=== PATIENT | female | born 1950 | race Caucasian/White ===

== ENCOUNTER 2024-09-21 12:28 | Emergency (ER) | payer MEDICARE, OTHER ==
[~2024-09-21] VITALS: Ht 165.1 cm; Wt 72.3 kg
[~2024-09-21 12:28] MED LIST: CALCIUM + D SO1 EACH PO; ESTROGEN-METHY1 EAC3 PO; FLUOXETINE HCL40 MG PO; GLUCOSAMINE-CH1 EA11 PO; MEDROXYPROGESTER5 MG PO; NORCO 5-325 TA1 EACH PO; OMEPRAZOLE20 MG PO; VITAMIN D1000 UNI1 PO
[2024-09-21 12:50] LABS: BILIRUBIN, URINE NEGATIVE (negative); BLOOD/HGB, URINE NEGATIVE (Negative); KETONE, URINE NEGATIVE (Negative); LEUK ESTERASE, URINE NEGATIVE (negative); NITRITE, URINE NEGATIVE (negative)
[2024-09-21] MEDS ORDERED: HYDROmorphone HCL 1 MG/ML SYR IV ONE (13:00)
[2024-09-21] MEDS ORDERED: ondansetron HCL 4 MG/2 ML VIAL IV PRN (13:00)
[2024-09-21 13:09] LABS: BASOPHILS 0.6 % (0-2); EOSINOPHILS 1.4 % (0-6); HEMATOCRIT 39.7 % (35.0-50.0); HEMOGLOBIN 13.6 g/dL (12.0-18.0); LYMPHOCYTES 33.5 % (24-44); MCH 33.3 (27-36); MCHC 34.2 g/dl (30-36); MCV 97.5 fl (81-99); MONOCYTES 9.3 % (0-12); NEUTROPHILS 55.2 % (39-80); PLATELET COUNT 206 K/uL (140-440); RBC 4.07 M/ul (4.3-5.7); RDW 13.9 (10.5-15.0)
[2024-09-21 13:25] LABS: ALBUMIN 3.8 g/dL (3.4-5.0); ALBUMIN/GLOBULIN RATIO 1.36 (1.1-2.4); ANION GAP 10.9 (7-21); BILIRUBIN, TOTAL 0.4 ng/dL (0.2-1.0); BUN/CREATININE RATIO 12.19 (6.0-28.6); CALCIUM 9.1 mg/dL (8.5-10.1); CREATININE, SERUM 0.82 mg/dL (0.55-1.02); POTASSIUM 3.9 mmol/L (3.5-5.1); PROTEIN, TOTAL 6.6 g/dL (6.4-8.2)
[2024-09-21] MEDS ORDERED: HYDROCODON-ACE1 EA10 PO (15:32)
[2024-09-21 15:41] VITALS: BP 159/99
== END 2024-09-21 15:42 | disposition home or self-care (01) ==
LOC: ED 12:28
PROVIDERS: Emergency Medicine
DX: R10.9 Unspecified abdominal pain (principal); D17.71 Benign lipomatous neoplasm of kidney; Z88.8 Allergy status to other drugs, medicaments and biological substances; Z79.899 Other long term (current) drug therapy
CPT/HCPCS: 36415; 74177; 80053; 81003; 83690; 85025; 99284-25

== ENCOUNTER 2025-03-21 10:49 | Day surgery (SDC) | payer MEDICARE, OTHER ==
[~2025-03-21] VITALS: Ht 165.1 cm; Wt 69.5 kg
--- NOTE | ~2025-03-21 | OR ---
[facility] [address] [place], [place] [address] Draft DATE OF OPERATION: 03/21/2025 SURGEON: Kavita Tran MD PREOPERATIVE DIAGNOSIS: Complex hiatal hernia, stomach with mediastinum. POSTOPERATIVE DIAGNOSES: 1. Possible adenomatous polyp of stomach. 2. Antral gastritis. PROCEDURE: Esophagogastroduodenoscopy with biopsy. ANESTHESIA: Intravenous sedation fentanyl 100 mcg and Versed 3 mg. INDICATION: This 74-year-old white woman is a patient of KATIE Wiseman of [place]. The patient lives in [place] as well. 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 A very large hiatal hernia was noted on September 21, 2024. CT scan performed in the emergency room as ordered by Dr. Rawls. The CT scan showed a very large hiatal hernia containing majority of the stomach within the mediastinum. She has no specific complication at this time, specifically no ischemia. She does have dyspeptic symptoms, bloating and sometimes swallowing trouble, and on that basis, consideration is made for surgical repair. Anticipating probable repair upper endoscopy is well indicated to assess for neoplastic disease, stricture, H pylori, and other abnormalities might impact perioperative management or preoperative management. She understands risk of bleeding, infection, and perforation related to upper endoscopy and wished to proceed. FINDINGS: Esophagus generally speaking was okay without sign of ulceration, neoplasm, varices or Lopez's epithelium. The stomach itself was as expected somewhat contorted in its appearance. The GE junction itself had a flap valve but stomach was quite likely herniated above the diaphragm. Manipulation allow for passage to the antrum and the pylorus. The antrum did appear chronically inflamed, but without ulceration. The duodenum was reasonably normal. Biopsies were obtained there and of the stomach. Within the midportion of the stomach was an unifocal polyp which had an adenomatoid PATIENT NAME: MEME OLIVO OPERATIVE REPORT DATE OF : 52 REPORT #: [id number] PHYSICIAN: KAVITA TRAN MD PCP: MATHEW PAUL REPORT IS CONFIDENTIAL AND NOT TO BE RELEASED WITHOUT AUTHORIZATION [facility] [address] [place], [place] [address] Draft appearance of its surface and this was excised with cold morcellation technique. DESCRIPTION OF PROCEDURE: The patient was brought to the endoscopy suite and placed in lateral decubitus position, underwent lidocaine hypopharyngeal anesthesia. She was given intravenous sedation to the point of slurred speech and nystagmus with full cardiopulmonary monitoring. A bite block was placed. An Olympus video upper endoscope was passed in the hypopharynx. Vocal cords appeared normal. Scope was advanced to the esophagus without problem throughout its length it was reasonably normal without sign of pathologic issue and specifically no stricture or neoplasm. Scope was passed to the stomach which was insufflated with air. A somewhat contorted stomach was noted. Rugal folds are reasonably normal, however, with various manipulations. Scope was passed into the antrum where the pylorus was visualized as normal. Scope was passed through it into the duodenum, which was generally normal. Biopsies were obtained to assess for celiac disease. The scope was withdrawn and biopsies then taken of the antrum, which did show chronic inflammatory change. On the midportion of stomach was an adenomatous appearing polyp, which was less than a cm. This was excised with cold morcellation technique. There was no other polyps visible. Retroflexed view was undertaken showing a diaphragmatic hiatus constricting the upper part of the stomach with a flap valve that appeared intact. The scope was straightened, withdrawn and biopsies taken for NIKOLAI and pathologic testing. The distal esophagus was additionally biopsied upon withdrawal of scope in the mid esophagus as well. Scope was removed. The patient was taken to the recovery room in good condition. CONCLUDING DIAGNOSIS: Upper endoscopic findings consistent with CT findings of significant grade 4 hiatal hernia. Mild antral gastritis without evidence of H pylori was noted. There is no neoplasm of the stomach or esophagus. Proceeding to operative repair would be anticipated in the near future. MD JASS Chiu/JESSICAL /[id number] cc: KATIE Wiseman PATIENT NAME: MEME OLIVO OPERATIVE REPORT DATE OF : 52 REPORT #: [id number] PHYSICIAN: KAVITA TRAN MD PCP: MATHEW PAUL REPORT IS CONFIDENTIAL AND NOT TO BE RELEASED WITHOUT AUTHORIZATION [address] [address] Draft Copies: MATHEW PAUL ~ PATIENT NAME: MEME OLIVO MARIUM OPERATIVE REPORT DATE OF : 52 REPORT #: [id number] PHYSICIAN: KAVITA TRAN MD PCP: MATHEW PAUL REPORT IS CONFIDENTIAL AND NOT TO BE RELEASED WITHOUT AUTHORIZATION
[~2025-03-21 10:49] MED LIST changes: +HYDROCODON-ACE1 EA10 PO; +IBLOOD GLUCOSE TEST STRIP 1 EA TEST VI PRN; +LACTATED RINGER'S 1,000 ML IV SCH; +LIDOCAINE HCL 1% 5 ML SDV INJ ONE; +LIDOCAINE HCL 4% 50 ML BTL TOP SCH; +MIDAZOLAM HCL 5 MG/5 ML VIAL IV PRN; +fentaNYL citrate 100 MCG/2 ML VIAL IV PRN
[2025-03-21 11:15] VITALS: BP 142/78
[2025-03-21] MEDS ORDERED: PRIMIDONE50 MG PO (11:20)
[2025-03-21] MEDS ORDERED: fentaNYL citrate 100 MCG/2 ML VIAL ONE (12:20)
[2025-03-21] MEDS ORDERED: MIDAZOLAM HCL 5 MG/5 ML VIAL ONE (12:20)
--- NOTE | 2025-03-21 13:05 | NUR ---
03/21/25 1305 Mackenzie Poe 6551-PATIENT ARRIVED TO PACU ON 2L NC RR EVEN. PATIENT LAYING LEFT LATERAL ABDOMEN SOFT. IVF INFUSING. SB HR 57-60'S. DENIES PAIN OR NAUSEA. PATIENT ORIENTED TO PACU EASILY DOZES BACK TO SLEEP.
[2025-03-21 13:36] VITALS: BP 142/94
--- NOTE | 2025-03-23 09:17 | PATH ---
[facility] [address] [facility] [place], [place] [address] Signed SPECIMEN(S): A GASTRIC STOMACH POLYP SPECIMEN(S): B DUODENAL BIOPSY SPECIMEN(S): C ANTRUM BIOPSY SPECIMEN(S): D DISTAL ESOPHAGEAL BIOPSY SPECIMEN(S): E MID ESOPHAGEAL BIOPSY SPECIMEN SOURCE: A. GASTRIC STOMACH POLYP B. DUODENAL BIOPSY C. ANTRUM BIOPSY D. DISTAL ESOPHAGEAL BIOPSY E. MID ESOPHAGEAL BIOPSY CLINICAL HISTORY: Grade 4 hiatal hernia, gastric polyps (was written in special request to rule out) FINAL PATHOLOGIC DIAGNOSIS: A. Stomach, polypectomy: - Fundic gland polyp B. Duodenum, biopsy: - Duodenal mucosa with no significant pathologic changes C. Stomach, antrum, biopsy: - Gastric antral and oxyntic mucosa with no significant pathologic changes - Negative for Helicobacter pylori with HE stains D. Esophagus, distal, biopsy: - Squamoglandular mucosa with no significant pathologic changes; negative for intestinal metaplasia E. Esophagus, mid, biopsy: - Esophageal squamous mucosa with no significant pathologic changes BRP MICROSCOPIC EXAMINATION: Histologic sections of all submitted blocks are examined by light microscopy. These findings, together with the gross examination, support the pathologic diagnosis. GROSS DESCRIPTION: A. The specimen, labeled and designated "Олег Julienne, gastric stomach polyp," is received in formalin and consists of two queen soft tissue fragments, ranging from 0.2-0.3 cm. Entirely submitted in (A1). PATIENT NAME: MEME OLIVO MARIUM PATHOLOGY DATE OF : 52 REPORT #: [id number] PHYSICIAN: ARIANE PATHOLOGY PCP: MATHEW PAUL REPORT IS CONFIDENTIAL AND NOT TO BE RELEASED WITHOUT AUTHORIZATION [facility] [address] [place], [place] [address] Signed B. The specimen, labeled and designated "Evertson, N, duodenal biopsy," is received in formalin and consists of two queen soft tissue fragments, ranging from 0.2-0.3 cm. Entirely submitted in (B1). C. The specimen, labeled and designated "Arnson, N, antrum biopsy," is received in formalin and consists of two queen soft tissue fragments, ranging from 0.4-0.8 cm. Entirely submitted in (C1). D. The specimen, labeled and designated "Arnson, N, distal esophageal biopsy," is received in formalin and consists of two queen soft tissue fragments, ranging from 0.3-0.4 cm. Entirely submitted in (D1). E. The specimen, labeled and designated "Evertson, N, mid esophageal biopsy," is received in formalin and consists of two queen soft tissue fragments, ranging from 0.2-0.4 cm. Entirely submitted in (E1). AB (under the direct supervision of a pathologist) The Gross Description was prepared using a voice recognition system. The report was reviewed for accuracy; however, sound-alike word errors, addition and/or deletions may occur. If there is any question about this report, please contact Client Services. ADDITIONAL NOTES: Immunohistochemical and/or in situ hybridization studies if performed in this case included appropriate positive controls that reacted as expected. This test was developed and its performance characteristics determined by [facility]. It has not been cleared or approved by the U.S. Food and Drug Administration. The FDA has determined that such clearance or approval is not necessary. This test is used for clinical purposes. It should not be regarded as investigational or for research. [facility] is certified under the Clinical Laboratory Improvement Amendments of 1988 (CLIA) as qualified to perform high complexity clinical laboratory testing. PERFORMING LABORATORY: Technical component was performed by [facility], [facility] [place] [address] (CLIA# [id number]). Professional interpretation was performed by [facility] - Loc[facility] Within [facility], [facility] [place] [address] (CLIA#: [id number]). Diagnostician: Andrea Paige MD Pathologist Electronically Signed 03/23/2025 PATIENT NAME: MEME OLIVO MARIUM PATHOLOGY DATE OF : 52 REPORT #: [id number] PHYSICIAN: ARIANE FRIAS PCP: MATHEW PAUL REPORT IS CONFIDENTIAL AND NOT TO BE RELEASED WITHOUT AUTHORIZATION [address] [place] [address] Signed Copies: ~ PATIENT NAME: MEME OLIVO PATHOLOGY DATE OF : 52 REPORT #: [id number] PHYSICIAN: ARIANE FRIAS PCP: MATHEW PAUL REPORT IS CONFIDENTIAL AND NOT TO BE RELEASED WITHOUT AUTHORIZATION
== END 2025-03-21 13:45 | disposition home or self-care (01) ==
LOC: OPS 10:49 → DS 10:49 → OPS 12:15
PROVIDERS: ATTEND Surgery
PROC: 0DB68ZX Excision of Stomach, Via Natural or Artificial Opening Endoscopic, Diagnostic (ICD-10-PCS; 2025-03-21)
PROC: 0DB28ZX Excision of Middle Esophagus, Via Natural or Artificial Opening Endoscopic, Diagnostic (ICD-10-PCS; 2025-03-21)
PROC: 0DB38ZX Excision of Lower Esophagus, Via Natural or Artificial Opening Endoscopic, Diagnostic (ICD-10-PCS; 2025-03-21)
PROC: 0DB98ZX Excision of Duodenum, Via Natural or Artificial Opening Endoscopic, Diagnostic (ICD-10-PCS; principal; 2025-03-21 12:15)
DX: K44.9 Diaphragmatic hernia without obstruction or gangrene (principal); K29.50 Unspecified chronic gastritis without bleeding; K31.7 Polyp of stomach and duodenum; Z79.899 Other long term (current) drug therapy; Z88.8 Allergy status to other drugs, medicaments and biological substances
CPT/HCPCS: 99153; G0500; J2250; J3010; J7121

== ENCOUNTER 2025-03-28 12:13 | Inpatient (IN) | payer MEDICARE, OTHER ==
[~2025-03-28] VITALS: Ht 165.1 cm; Wt 68.1 kg
[~2025-03-28 12:13] MED LIST changes: -GLUCOSAMINE-CH1 EA11 PO; +GLUCOSAMINE-CH1 EA21 PO; -IBLOOD GLUCOSE TEST STRIP 1 EA TEST VI PRN; -LACTATED RINGER'S 1,000 ML IV SCH; -LIDOCAINE HCL 1% 5 ML SDV INJ ONE; -LIDOCAINE HCL 4% 50 ML BTL TOP SCH; -MIDAZOLAM HCL 5 MG/5 ML VIAL IV PRN; +PRIMIDONE50 MG PO; -fentaNYL citrate 100 MCG/2 ML VIAL IV PRN
[2025-03-30] MEDS ORDERED: MULTI-VITAMIN1 EACH PO (13:28)
[2025-03-30] MEDS ORDERED: CALCIUM ACETAT667 M2 PO (13:28)
[2025-03-30 13:43] VITALS: BP 131/63
[2025-04-04] VITALS (9 sets, daily range): BP systolic 105–141; BP diastolic 60–76
[2025-04-04] MEDS ORDERED: LACTATED RINGER'S 1,000 ML IV SCH ×2 (05:00→11:45)
[2025-04-04] MEDS ORDERED: LIDOCAINE HCL 1% 5 ML SDV INJ ONE (07:00)
[2025-04-04] MEDS ORDERED: HEParin SOD (PORCINE) 5,000 UNIT/ML SDV SUB-Q SCH (07:00)
[2025-04-04] MEDS ORDERED: IBLOOD GLUCOSE TEST STRIP 1 EA TEST VI PRN (07:00)
[2025-04-04] MEDS ORDERED: CEFAZOLIN SODIUM 2 GM/20 ML SYR IV SCH (07:00)
[2025-04-04] MEDS ORDERED: ACETAMINOPHEN 1,000 MG/100 ML VIAL ONE (08:07)
[2025-04-04] MEDS ORDERED: ROCURONIUM BROMIDE 50 MG/5 ML SYR ONE (08:07)
[2025-04-04] MEDS ORDERED: fentaNYL citrate 100 MCG/2 ML VIAL ONE (08:07)
[2025-04-04] MEDS ORDERED: MIDAZOLAM HCL 2 MG/2 ML VIAL ONE (08:07)
[2025-04-04] MEDS ORDERED: LIDOCAINE HCL 2% 5 ML SDV ONE (08:07)
[2025-04-04] MEDS ORDERED: ondansetron HCL 4 MG/2 ML VIAL ONE (08:07)
[2025-04-04] MEDS ORDERED: propofoL 200 MG/20 ML VIAL ONE (08:07)
[2025-04-04] MEDS ORDERED: DEXAMETHASONE SOD PHOS 4 MG/ML VIAL ONE (08:07)
[2025-04-04] MEDS ORDERED: ePHEDrine sulfate 50 MG/ML AMP ONE (09:42)
[2025-04-04] MEDS ORDERED: SUGAMMADEX SODIUM 200 MG/2 ML ML ONE (10:59)
[2025-04-04] MEDS ORDERED: SEVOFLURANE 250 ML BTL INH ONE (11:12)
--- NOTE | 2025-04-04 11:36 | NUR ---
04/04/25 1136 Day Cisse PATIENT LIFTS HER HEAD AND OXYGEN MASK IS REMOVED. NG TUBE TO LOW SUCTION.
[2025-04-04] MEDS ORDERED: ACETAMINOPHEN 1,000 MG/100 ML VIAL IV PRN (11:45)
[2025-04-04] MEDS ORDERED: KETOROLAC TROMETHAMINE 30 MG/ML VIAL IV PRN (11:45)
[2025-04-04] MEDS ORDERED: HYDROmorphone HCL 1 MG/ML SYR IV PRN ×2 (11:45→12:15)
[2025-04-04] MEDS ORDERED: ondansetron HCL 4 MG/2 ML VIAL IV PRN (11:45)
[2025-04-04] MEDS ORDERED: NALOXONE HCL 0.4 MG SYR IV PRN (12:15)
[2025-04-04] MEDS ORDERED: droPERidol 5 MG/2 ML VIAL IV PRN (12:15)
[2025-04-04] MEDS ORDERED: fentaNYL citrate 50 MCG/ML SDV IV PRN (12:15)
[2025-04-04] MEDS ORDERED: KETOROLAC TROMETHAMINE 15 MG/ML VIAL IV ONE (12:30)
--- NOTE | 2025-04-04 12:54 | NUR ---
PT TO FLOOR WITH RAYSHAWN QUINTERO. NIKI IN ROOM. REPORT FROM INGRID. PT AWAKE BUT TIRED. RATES PAIN 4\10 IN THROAT AND IN TOP OF INCISION, CDI. NG TO LIWS, MINIMAL OUTPUT. CPOX IN PLACE. VS STABLE. ICE CHIPS IN HAND.
--- NOTE | 2025-04-04 13:49 | NUR ---
NURSING STAFF PROVIDING CARES.
--- NOTE | 2025-04-04 13:51 | NUR ---
PT RESTING IN BED WITH NG TO LIWS DRAINING SCANT BROWN SECRETIONS, HAS MIDLINE ABD INCISION WITH ACTICOAT WITH TINY SHADOW ON LOW RIGHT SIDE OF DRESSING. PT ON RA WITH CPOX ON. PT C/O PAIN TO UPPER MID ABD 4/10. CALL LIGHT WITHIN REACH AND IN ROOM.
--- NOTE | 2025-04-04 16:02 | NUR ---
PT STATES PAIN HAS DECREASED TO 3/10 AND IS TOLERABLE AT THIS TIME. NO OTHER REQUESTS. CALL LIGHT WITHIN REACH.
--- NOTE | 2025-04-04 17:06 | NUR ---
MED REC COMPLETE
--- NOTE | 2025-04-04 18:46 | NUR ---
PT UP AMBULATING IN [place] WITH FWW AND 1PA. PT TOLERATED WELL. PT BACK TO BED. DICKSON CATHETER DC'D. NO REQUESTS AT THIS TIME. CALL LIGHT WITHIN REACH. BRIEF PLACED ON PT.
--- NOTE | 2025-04-04 19:25 | NUR ---
REPORT RECEIVED FROM DAY SHIFT RN. PT LYING IN BED ALERT AND ORIENTED. DENIES NEEDS. WHITE BOARD UPDATED. CALL LIGHT IN REACH.
--- NOTE | 2025-04-04 21:25 | NUR ---
EVENING ASSESSMENT COMPLETE. PT REPORTS ABD PAIN /10. PRN FOR PAIN ADMIN PER EMAR. DENIES NAUSEA. NGT TO LIWS PATENT WITH CLEAR DRAINAGE. PT MELANIE ICE CHIPS WELL. MIDLINE ABD INCISION WITH PIN POINT SHADOWING AT BOTTOM OF DRESSING. ABD SOFT. BOWEL TONES HYPOACTIVE. PT DENIES FLATUS. SCD'S IN PLACE. ASSISTED PT TO REPOSITION FOR COMFORT. PT DENIES QUESTIONS OR CONCERNS. CALL LIGHT IN REACH.
--- NOTE | 2025-04-04 23:08 | NUR ---
PT RESTING IN BED WITH EYES CLOSED. RESPIRATIONS EVEN. CALL LIGHT IN REACH.
--- NOTE | 2025-04-04 23:54 | NUR ---
PT RESTING ON RIGHT SIDE WITH EYES CLOSED. RESPIRATIONS EVEN. SpO2 94% ON RA. HR 60'S. BED ALARM FOR SAFETY. CALL LIGHT IN REACH.
[2025-04-05] VITALS (12 sets, daily range): BP systolic 102–143; BP diastolic 55–77
--- NOTE | 2025-04-05 00:22 | NUR ---
PT UP TO BR WITH FWW AND AND 1PA TO VOID 200 ML CONCENTRATED URINE. GAIT STEADY. BACK TO BED, MELANIE WELL. PT REPORTS UPPER ABD PAIN 3/10. PRN FOR PAIN ADMIN. NO C/O NAUSEA. NGT TO LIWS WITH GREEN DRAINAGE. VS AND I&O OBTAINED. FRESH ICE CHIPS PROVIDED. NO FURTHER NEEDS. BED ALARM FOR SAFETY. CALL LIGHT IN REACH.
--- NOTE | 2025-04-05 01:49 | NUR ---
IV PUMP ALARMING. ISSUE RESOLVED. PT AWAKE IN BED, REPORTS UNABLE TO SLEEP. NO C/O PAIN. TV REMOTE PROVIDED. NO NEEDS REPORTED AT THIS TIME. CALL LIGHT IN REACH. BED ALARM FOR SAFETY.
--- NOTE | 2025-04-05 03:56 | NUR ---
PT IN BED RESTING WITH EYES CLOSED. SpO2 97% ON RA. HR 70'S. HOB ELEVATED. CALL LIGHT IN REACH.
--- NOTE | 2025-04-05 04:46 | NUR ---
PT UP TO BR WITH FWW AND SBA TO VOID. GAIT STEADY. BACK TO BED, MELANIE WELL. HOB ELEVATED. NGT TO LIWS WITH 200 ML GREEN DRAINAGE. ICE CHIPS PROVIDED. PT REPORTS ABD PAIN 02/09. PRN FOR PAIN ADMIN PER EMAR. DENIES NAUSEA. VS AND I&O OBTAINED. NO FURTHER NEEDS. CALL LIGHT IN REACH.
--- NOTE | 2025-04-05 06:09 | NUR ---
CALL LIGHT ANSWERED. pt RATES PAIN 8/10 IN ABDOMEN. PRN MEDICATION ADMINISTERED. CALL LIGHT AND PERSONAL SUPPLIES IN REACH. pt DENIES ADDITIONAL NEEDS. HOB ELEVATED. NGT TO LOW INT SUCTION.
--- NOTE | 2025-04-05 06:39 | NUR ---
PT RATED MID ABD PAIN 9/10. PRN FOR PAIN ADMIN PER EMAR. ICE PACK PROVIDED FOR COMFORT. NO FURTHER NEEDS AT THIS TIME.
--- NOTE | 2025-04-05 06:50 | NUR ---
PT REPORTS PAIN IMPROVED /10. SpO2 87-89% ON RA. 1L/NC PLACED. SpO2 >90%.
--- NOTE | 2025-04-05 07:14 | NUR ---
UR CLINICAL REVIEW: 2 MN FOR VERSALUS-MEETS INPT FOR HILL REPAIR WITH NEED FOR PAIN CONTROL MEDICARE INPT 04/04/25 @ 1146 ORDER MATCHES REG NO AUTH REQUIRED PER MEDICARE GUIDELINES DISCHARGE TO HOME WHEN STABLE
--- NOTE | 2025-04-05 07:21 | NUR ---
REPORT RECEIVED FROM RAYSHAWN ADAMS
--- NOTE | 2025-04-05 09:08 | NUR ---
ALERT AND ORIENTED IN BED. NG REMAINS IN PLACE. CONTINUES TO DENY CM NEEDS. PLAN TO DC TO HOME WHEN MEDICALLY CLEARED.
[2025-04-05] MEDS ORDERED: HYDROmorphone HCL 2 MG TAB PO PRN (09:45)
--- NOTE | 2025-04-05 09:59 | OR ---
[facility] [address] [place], [place] [address] Signed DATE OF OPERATION: 04/04/2025 SURGEON: Kavita Tran MD PREOPERATIVE DIAGNOSES: Complex type 4 hiatal hernia with dysphagia and bloating (stomach and chest). POSTOPERATIVE DIAGNOSES: Complex type 4 hiatal hernia with dysphagia and bloating (stomach and chest). PROCEDURE: Hill repair-reconstruction of the gastroesophageal junction with posterior gastropexy. ANESTHESIA: General endotracheal, Roger Warner CRNA. DRAWING PRESS OPERATOR: Irvin Mcgarry RN. INDICATION: This 74-year-old white woman is from [place], [place] and a patient of Char MCKEON. The patient has had bloating and fullness for quite some time and on recent evaluation in the emergency room in January had complaints of abdominal pain, bloating, fullness, and low-grade dysphagia. A CT scan was performed on September 21, 2024, showing a very large hiatal hernia containing the majority of the stomach within the mediastinum. There was no sign of obstruction or ischemia. The patient is known to have a prior history of myelolipoma of the kidneys. She has undergone embolization therapy for that. She has had cholecystectomy in the past as well. She did undergo upper endoscopy by me showing no evidence of lesion to contraindicate repair of the sizable symptomatic type 4 hiatal hernia. On that basis, she is admitted at this time to undergo repair of the complex hernia with Hill posterior gastropexy (reconstruction of the GE junction) after reduction of herniated stomach. The risk of bleeding, infection, recurrence, need for other indicated procedures and so forth was all reviewed in detail. She understands and wished to proceed. FINDINGS: As expected much of the stomach was in the posterior mediastinum. It was easily reduced without evidence of ischemia or ulceration externally. The redundant phrenoesophageal ligaments forming hernia sacs in the typical were resected. Electronically Signed By: KAVITA TRAN MD 04/05/25 0959 PATIENT NAME: MEME OLIVO OPERATIVE REPORT DATE OF : 52 REPORT #: [id number] PHYSICIAN: KAVITA TRAN MD PCP: SHASHI BARRERA MD REPORT IS CONFIDENTIAL AND NOT TO BE RELEASED WITHOUT AUTHORIZATION [facility] [address] [place], [place] [address] Signed The esophagus, once fully freed from the hernia sac elements, easily demonstrated an anterior and posterior vagal nerve, which were well preserved. The spleen was normal. Reconstruction of the GE junction was optimal with a palpable flap valve that appeared appropriate. The liver itself was normal. There was surgical absence of the gallbladder. The duodenum was normal. Manometrics was not available and therefore not performed. DESCRIPTION OF PROCEDURE: The patient was brought to the operating room and given a general endotracheal anesthetic. She had already undergone preoperative T9, erector spinae nerve blocks anticipating postoperative analgesic benefit. After satisfactory general endotracheal anesthesia, a Thomas catheter was placed. The abdomen was prepared with a chlorhexidine solution and draped sterilely. Prep was extended to above the nipples. Preoperative antibiotic Ancef had been given. Sequential compression device stockings were used as well. An incision was made from the xiphoid to the mid epigastric area and later increased in length, but still above the umbilicus related to the abdominal wall fatty tissue. Upon entry to the abdomen, inspection showed no sign of ascites or carcinomatosis. The liver appeared normal as did the transverse colon. Much of the stomach was herniated into the chest. This was easily grasped and withdrawn demonstrating well the GE junction with very attenuated attachments forming hernia sacs as expected. A lapatomy sponge was placed behind the spleen to take tension off the medial aspect of the spleen. The left lateral segment of liver was freed with electrocautery and subsequently the gastrohepatic omentum was similarly incised exposing the caudate lobe of the liver and the vena cava itself. An upper hand retractor was placed prior to mobilization of the left lateral segment in the usual way providing excellent exposure of the upper abdomen. A Bookwalter retractor was affixed to the lower part of the table and the left lateral segment rotated and reflected to the right exposing well the GE junction and secured with a malleable blade. Impressively attenuated fibers of the phrenoesophageal bundles forming hernia sacs were noted. The stomach was directed inferiorly and a dario clamp applied to the right kylah. The hernia sacs were incised mobilizing fully the GE junction. Alternating dissection on left and right side of the GE junction including the left kylah was also undertaken. Ultimately, the hook retractor was used to reflect the GE junction to the left exposing the posterior mediastinum. The aorta was well visualized and the esophageal hiatus was impressively wide, but the left and right crura were peres and well formed. Anterior and posterior vagal nerves were identified in conjunction with Electronically Signed By: KAVITA TRAN MD 04/05/25 0959 PATIENT NAME: MEME OLIVO OPERATIVE REPORT DATE OF : 52 REPORT #: [id number] PHYSICIAN: KAVITA TRAN MD PCP: SHASHI BARRERA MD REPORT IS CONFIDENTIAL AND NOT TO BE RELEASED WITHOUT AUTHORIZATION [place] [address] Signed the esophagus and were preserved and without injury. The divided hernia sacs and their bungee cord like effects on the ge junction were fully divided to allow for a tension free well mobilized GE junction. On this occasion instead of elevating the pre aortic fascia with a emir cervical dilator Rociada clamps were attached to the left and right crura. The crura were then reapproximated with interrupted O silk suture with Betadine-soaked felt pledgetts. Three sutures were placed. The esophagus was able to be palpated with the tip of the finger along side the closure avoiding excessive closure of the hiatal aperture. Plans were then made for reconstruction of the GE junction proper. The anterior and posterior phrenoesophageal bundles were easily identified and grasped with Rociada clamps. In the typical technique of Cornelius, 4 repair sutures were initially placed. These included a seromuscular bite of the stomach and the associated phreno esophageal bundle and the pre aortic fascia at the base of the right kylah. The pre aortic fascia was elevated away from the underlying aorta using the previously placed silk suture for crural reapproximation. Four sutures were ultimately secured allowing for peres reconstruction of the gastroesophageal flap valve. The fundus of the stomach was then secured to the tendon of the diaphragm with 3 separate interrupted 0 silk sutures with Betadine soaked Bonilla pledgets to avoid early herniation of the fundus of the stomach. Irrigation was undertaken. Hemostasis was found to be complete. Palpation of the resultant flap valve appeared optimal. The laparotomy pack behind the spleen was removed. Irrigation undertaken and plans then made for closure. The midline fascia was reapproximated with running bidirectional #1 PDS suture. Subcutaneous tissue was irrigated and the skin closed with running subcuticular 3-0 Vicryl. Steri-Strips were applied as was an Acticoat dressing. The patient was ultimately extubated and transferred to the recovery room in good condition having suffered no complication. Sponge, needle, and instrument counts reported as correct x3. MD JASS Chiu/MODL /[id number] cc: Char Grayson Electronically Signed By: KAVITA TRAN MD 04/05/25 0959 PATIENT NAME: MEME OLIVO MARIMU OPERATIVE REPORT DATE OF : 52 REPORT #: [id number] PHYSICIAN: KAVITA TRAN MD PCP: SHASHI BARRERA MD REPORT IS CONFIDENTIAL AND NOT TO BE RELEASED WITHOUT AUTHORIZATION [facility] [address] [facility] [place], [place] [address] Signed Copies: CHAR GRAYSON Electronically Signed By: KAVITA TARN MD 04/05/25 0959 PATIENT NAME: MEME OLIVO OPERATIVE REPORT DATE OF : 52 REPORT #: [id number] PHYSICIAN: KAVITA TRAN MD PCP: SHASHI BARRERA MD REPORT IS CONFIDENTIAL AND NOT TO BE RELEASED WITHOUT AUTHORIZATION
[2025-04-05] MEDS ORDERED: HYDROmorphone HCL 1 MG/ML SYR IV PRN (10:00)
[2025-04-05] MEDS ORDERED: ondansetron HCL 4 MG/2 ML VIAL IV PRN (10:00)
[2025-04-05] MEDS ORDERED: KETOROLAC TROMETHAMINE 30 MG/ML VIAL IV PRN (10:00)
--- NOTE | 2025-04-05 11:04 | NUR ---
VISITED DURING SPIRITUAL CARE ROUNDS. PT SUPPORTED BY IN ROOM, NO IMMEDIATE NEEDS. TRANSFER STATION ATTENDANT PROVIDED SUPPORTIVE PRESENCE, HOSPITALITY, PRAYER, GAVE ANTICIPATORY GUIDANCE, EXPLORED LISA PRACTICES.
--- NOTE | 2025-04-05 11:46 | NUR ---
PT UP AMBULATING IN [place] WITH FWW AND 1 PA, PT TOLERATED WELL. PT BACK TO BED WITH SCDS ON , USING INCENTIVE SPIROMETER, AND CALL LIGHT WITHIN REACH. AT BEDSIDE. PT RATES PAIN 2/10 STATES IS TOLERABLE. ACITCOAT DRSG TO MID ABD WITH TINY SHADOW R LOWER CORNER, OTHERWISE CDI. TOLERATED WATER AND JELLO.
--- NOTE | 2025-04-05 13:41 | NUR ---
PT SITTING AT SIDE OF BED EATING CL LIQUID LUNCH, TOLERATING WELL. PT C/O PAIN TO MID ABD INCISION 03/11, MEDS GIVEN ORDERED. CALL LIGHT WITHIN REACH. QUITE PACK ALSO GIVEN. NO OTHER REQUESTS AT THIS TIME.
[2025-04-05] MEDS ORDERED: ACETAMINOPHEN 160 MG/5 ML ML PO SCH (14:00)
--- NOTE | 2025-04-05 15:16 | NUR ---
PT C/O PAIN 5/10 TO MID ABD SURGICAL SITE. MEDICATION GIVEN ORDERED. CALL LIGHT WITHIN REACH.
--- NOTE | 2025-04-05 16:45 | NUR ---
PT AMBULATED IN [place] FULL [place] AROUND UNIT WITH 1 SBA AND FWW, PT TOLERATED WELL. PT THEN AMBULATED INTO THE RESTROOM TO VOID 500 CC CL YELLOW URINE. PT THEN AMBULATED TO CHAIR. PT IN CHAIR WITH LEGS ELEVATED AND CALL LIGHT WITHIN REACH. NO REQUESTS AT THIS TIME.
--- NOTE | 2025-04-05 18:22 | NUR ---
PT SITTING UP IN CHAIR EATING CL LIQ DINNER ORDERED, PT TOLERATED WELL. PT C/0 PAIN TO ABD INCISION 02/09, MED GIVEN ORDERED, AND WATER REFRESHED. NO OTHER REQUESTS AT THIS TIME. CALL LIGHT WITHIN REACH.
--- NOTE | 2025-04-05 19:05 | NUR ---
REPORT RECEIVED FROM KAMINI TABARES. BOARD UPDATED. ICE PACK PROVIDED. pt DENIES ANY OTHER NEEDS AT THIS TIME. CALL LIGHT WITHIN REACH.
--- NOTE | 2025-04-05 20:39 | NUR ---
BIOLOGY FACULTY MEMBER OBTAINED VITALS AND I&O. PT STATES NO NEEDS AT THIS TIME. CALL LIGHT WITHIN REACH.
--- NOTE | 2025-04-05 21:00 | NUR ---
ASSESSMENT DONE. pt UP TO THE BR. SBA WITH FWW. pt C/O 04/11 PAIN. PRN PAIN MEDS ADMINISTERED. MIDLINE DRESSING MAS MINIMAL DRAINAGE ON IT, OTHERWISE CDI. pt DENIES ANY OTHER NEEDS AT THIS TIME. CALL LIGHT WITHIN REACH.
--- NOTE | 2025-04-05 22:05 | NUR ---
pt RESTING IN THE BED. pt C/O 02/09. PRN AND SCHEDULED MEDS ADMINISTERED. pt DENIES ANY OTHER NEEDS AT THIS TIME. CALL LIGHT WITHIN REACH.
[2025-04-06] VITALS (11 sets, daily range): BP systolic 95–133; BP diastolic 58–82
--- NOTE | 2025-04-06 00:21 | NUR ---
pt RESTING IN THE BED WITH EYES CLOSED. RR EVEN AND UNLABORED. CALL LIGHT WITHIN REACH.
--- NOTE | 2025-04-06 01:53 | NUR ---
pt CALLED TO USE THE BR. SBA WITH FWW. pt BACK TO BED. pt C/O 02/09 PAIN. PRN PAIN MEDS ADMINISTERED. WATER REFRESHED. ASSESSMENT DONE. pt DENIES ANY OTHER NEEDS AT THIS TIME. CALL LIGHT WITHIN REACH.
--- NOTE | 2025-04-06 02:50 | NUR ---
PT REPORTS 5/10 ABD PAIN, PRN PAIN MED PROVIDED. ICE PACK PROVIDED. PT STATES NO OTHER NEEDS AT THIS TIME. CALL LIGHT IN REACH.
--- NOTE | 2025-04-06 05:25 | NUR ---
IN RM TO DO VITAL SIGNS AND ASSESSMENT. SCHEDULED MEDS ADMINISTERED. pt DENIES ANY OTHER NEEDS AT THIS TIME. CALL LIGHT WITHIN REACH.
--- NOTE | 2025-04-06 07:05 | NUR ---
RECIEVED REPORT FROM RAYSHAWN HOLCOMB.
--- NOTE | 2025-04-06 07:57 | NUR ---
PT SITTING UP IN BED AWAKE. PT STATES PAIN IS "OKAY", EDUCATION ON AMBULATION AND PAIN CONTROL, PT VERBALIZES UNDERSTANDING. PLAN MADE FOR AMBULATION. PT REQUESTS ICE WATER, GIVEN. LUNG SOUNDS CLEAR IN UPPER LOBES, FINE CRACKLES IN BASES, EDUCATION ON DEEP BREATHING WELL I.S. USE, PT VERBALIZES UNDERSTANDING AND STATES SHE WILL USE MORE FREQUENTLY. PT STATES NO FURTHER NEEDS AT THIS TIME, CALL LIGHT WITHIN REACH.
[2025-04-06] MEDS ORDERED: IBUPROFEN 600 MG TAB PO PRN (08:00)
--- NOTE | 2025-04-06 08:45 | NUR ---
INTO SEE PATIENT. AT BEDSIDE. PATIENT TO GO HOME WITH WHEN MEDICALLY CLEARED. IM LETTER SIGNED AT 0850 NO FUTHER QUESITIONS OR NEEDS.
--- NOTE | 2025-04-06 10:03 | NUR ---
IV FLUIDS DC'D PER ORDER D/T PT TOLERATING FULL LIQUID DIET AND INTAKE WELL. PT STATES NO NEEDS AT THIS TIME, CALL LIGHT WITHIN REACH.
--- NOTE | 2025-04-06 10:11 | NUR ---
PATIENT WAS IN BED EATTING BREAKFAST AT THIS TIME WIH HER . SHE WANTED SOME HOT HERBAL MINT TEA, AND FRESH ICE WATER. CALL LIGHT WITH IN REACH AND NOTHING ELSE NEEDED AT THIS TIME.
--- NOTE | 2025-04-06 11:06 | NUR ---
PATIENT IS IN BED AT THIS TIME, REMOTE BROADCAST ENGINEER CHARTED VITALS AND I&O'S, ASSISTED PATIENT TO THE RESTROOM, WASHED HER FACE, BRUSHED HER TEETH, REMOTE BROADCAST ENGINEER CHANGED BEDDING, AND GOT FRESH ICE WATER. CALL LIGHT WITH IN REACH AND NOTHING ELSE NEEDED AT THIS TIME.
--- NOTE | 2025-04-06 12:04 | NUR ---
PT AMBULATES HALLWAYS, STATES PAIN DECREASES WITH AMBULATION. PT STATES NO NAUSEA OR SOB AT THIS TIME. PT BACK TO ROOM AND UP TO CHAIR. PT STATES NO FURTHER NEEDS AT THIS TIME, CALL LIGHT WITHIN REACH.
--- NOTE | 2025-04-06 12:53 | NUR ---
PATIENT IS IN HER CHAIR AT THIS TIME, TIME LOCK EXPERT CHARTED VITALS AND I&O'S, AND ASSISTED PATIENT WITH A WALK, EMPTIED CNAISTERS, CALL LIGHT WTIH IN REACH AND NOTHING ELSE NEEDED AT THIS TIME.
--- NOTE | 2025-04-06 13:01 | NUR ---
PT AMBULATING HALLWAY WITH OPTOMETRIC TECHNOLOGIST, STATES SHE IS WANTING TO WALK TO ASSIST WITH PAIN LEVEL. PT DENIES ANY CURRENT NEEDS.
--- NOTE | 2025-04-06 13:13 | NUR ---
PT BACK FROM WALK WITH FLOW SPECIALIST, VISITING WITH SISTER IN LAW AT THE BEDSIDE. PT STATES PAIN AFTER WALK IS 7/10, SCHEDULED PAIN MEDICATION GIVEN. WATER REFILLED, PT STATES NO FURTHER NEEDS AT THIS TIME, CALL LIGHT WITHIN REACH.
[2025-04-06] MEDS ORDERED: ACETAMINOPHEN 500 MG TAB PO SCH (14:00)
--- NOTE | 2025-04-06 17:37 | NUR ---
PT STATES SHE IS HAVING SHARP PAIN 6/10 IN UPPER ABDOMEN, PT EDUCATION ON AMBULATION ASSISTING WITH PAIN D/T PT NOT YET HAVING FLATULENCE. PT VERBALIZES UNDERSTANDING, PT UP FOR WALK AROUND UNIT. PT STATES NO INCREASE IN PAIN WITH WALKING. PT STATES NO FURTHER NEEDS AT THIS TIME, PT UP TO CHAIR FOR DINNER. CALL LIGHT WITHIN REACH.
--- NOTE | 2025-04-06 18:08 | NUR ---
PATIENT IS IN HER CHAIR AT THIS TIME, ADVANCE SCOUT CHARTED VITALS AND I&O'S, PATIENT WANTED TO GO FOR ANOTHER WALK, ASSISTED TO THE RESTROOM AND THEN BACK TO BED. GOT FRESH ICE WATER CALL LIGHT WITH IN REACH AND NOTHING ELSE NEEDED AT THIS TIME.
--- NOTE | 2025-04-06 19:22 | NUR ---
RECEIVED REPORT FROM RAYSHAWN CHASE. PT ALERT, RESTING IN BED. REPORTS ABD PAIN IS BEGINNING TO INCREASE, SHE WILL WALK IN HALLWAY. NO OTHER NEEDS, CALL LIGHT IN REACH
--- NOTE | 2025-04-06 19:46 | NUR ---
ASSESSMENT, VITALS. PT WITH 6/10 ABD PAIN, GIVEN PRN MOTRIN AND REFILLED ICE PACK. NO OTHER NEEDS, CALL LIGHT IN REACH
--- NOTE | 2025-04-06 20:31 | NUR ---
PT REPORTS PAIN INCREASING TO 7-8/10, NOT IMPROVED BY MOTRIN OR ICE. GIVEN PRN DILAUDID 4MG AND ENCOURAGED TO AMBULATE. NO OTHER NEEDS, [facility]
--- NOTE | 2025-04-06 21:41 | NUR ---
PAIN IMPROVED TO 4/10. GIVEN RUDI TYLENOL. ASSISTED TO BATHROOM, THEN AMBULATED 1 LAP IN HALLWAY WITH FWW. PT BACK IN BED, REFRESHED ICE WATER. NO OTHER NEEDS, CALL LIGHT IN REACH
--- NOTE | 2025-04-06 23:11 | NUR ---
PT RESTING IN BED, OPENS EYES AND WAVES AT THIS RN. NO NEEDS, CALL LGT IN REACH
--- NOTE | 2025-04-07 01:05 | NUR ---
PT REPORTS 6/10 PAIN. GIVEN 2MG OF PO DILAUDID AND REFRESHED ICE PACK. NO OTHER NEEDS, CALL LIGHT IN REACH
--- NOTE | 2025-04-07 02:40 | NUR ---
PT RESTING IN BED WITH EYES CLOSED, RISE AND FALL OF CHEST OBSERVED. CALL LIGHT IN REACH
--- NOTE | 2025-04-07 03:15 | NUR ---
PT RESTING IN BED WITH EYES CLOSED, RISE AND FALL OF CHEST OBSERVED. CALL LIGHT IN REACH
--- NOTE | 2025-04-07 04:00 | NUR ---
CALL LIGHT ANSWERED. PT NEEDED TO USE BATHROOM. UTILITY HAND 1PA WITH FWW TO BATHROOM. PT VOIDED AND ASSISTED BACK TO BED. ICE WATER REFILLED. PT STATES NO FURTHER NEEDS AT THIS TIME. CALL LIGHT WITHIN REACH.
[2025-04-07 05:15] VITALS: BP 141/88
--- NOTE | 2025-04-07 05:17 | NUR ---
GERMINATION WORKER OBTAINED VITALS AND I&O. ICE WATER REFILLED. PT STATES NO FURTHER NEEDS AT THIS TIME. CALL LIGHT WITHIN REWW [facility].
--- NOTE | 2025-04-07 05:39 | NUR ---
VITALS, AM MEDS. GIVEN PRN MOTRINA ND SCHEDULED TYLENOL FOR 5/10 PAIN. CALL LGT IN REACH
--- NOTE | 2025-04-07 06:20 | NUR ---
CALL LIGHT ANSWERED. PT NEEDED TO USE BATHROOM. DINKEY LOCOMOTIVE ENGINEER SBA WITH FWW TO BATHROOM. PT VOIDED AND ASSISTED BACK TO BED. ICE WATER REFILLED. PT STATES NO FURTHER NEEDS AT THIS TIME. CALL LIGHT WITHIN REACH.
--- NOTE | 2025-04-07 07:19 | NUR ---
Pt report received from RAYSHAWN Rodriguez. Pt is resting, supine, in bed, eyes closed, breathing is regular, even, and non-labored. Side rails up x4, call light in reach. Bedside table and personal belongings in reach. White board updated.
--- NOTE | 2025-04-07 07:19 | NUR ---
Pt report received from RAYSHAWN Rodriguez. Pt is resting in bed, A&O, HOB elevated to a position of comfort. Pt reports she is worried about her bowels and requests a cup of coffee with cream and sugar, which was provided to her. BT active, midline dressing intact with a small spot of older drainage noted towards the lower portion. Bruising noted around dressing. Pt reports some tenderness but it is tolerable. Pt denies further needs at this time. Call light in reach, side rails up x4. Bedside table and personal belongings in reach.
--- NOTE | 2025-04-07 10:16 | NUR ---
PATIENT TO DISCHARGE WITH WHEN MEDICALLY CLEARED. NO CM NEEDS AT THIS TIME.
[2025-04-07 10:21] VITALS: BP 129/91
--- NOTE | 2025-04-07 10:26 | NUR ---
PATIENT WAS IN BED AT THIS TIME, SKI LIFT ATTENDANT CHARTED VITALS AND I&O'S, PUT NEW SHEETS ON HER BED AND A NEW GOWN, PATIENT WASHED HER FACE AND BRUSHED HER TEETH, CALL LIGHT WITH IN REACH, PATIENT IS UP IN HER CHAIR NOW. AND NOTHING ELSE NEEDED AT THIS TIME.
[2025-04-07 11:10] VITALS: BP 129/91
[2025-04-07] MEDS ORDERED: IBUPROFEN600 MG PO (12:23)
[2025-04-07] MEDS ORDERED: HYDROMORPHONE HC2 MG PO (12:24)
[2025-04-07] MEDS ORDERED: ACETAMINOPHEN500 MG PO (12:24)
--- NOTE | 2025-04-07 13:09 | NUR ---
Reviewed pt discharge paperwork, instructions, and education with pt. Questions answered. Pt verbalized understanding and signed discharge form. IV catheter removed and was noted to be intact. Pressure dressing applied and pt instructed on s/sx to watch for and when to remove pressure dressing. Pt verbalized understanding. Acticoat dressing removed, per Dr. Soto's "nurse notify". Steri strips remain. Pt's is traveling here from [place], [place].
[2025-04-07 14:08] VITALS: BP 133/81
--- NOTE | 2025-04-07 14:11 | NUR ---
PATIENT IS SITTING IN BED READY TO GO, HUMAN SERVICES ASSISTANT CHARTED VITALS AND I&O'S, CALL LIGHT WITH IN REACH AND NOTHING ELSE NEEDED AT THIS TIME.
[2025-04-07 14:18] VITALS: BP 133/81
== END 2025-04-07 14:30 | disposition home or self-care (01) | DRG 328 ==
LOC: MS 04-04 07:55 → DSVR 04-04 07:55 → MS 04-04 09:00
PROVIDERS: ADMIT Surgery; ATTEND Surgery
PROC: 0DQ60ZZ Repair Stomach, Open Approach (ICD-10-PCS; principal; 2025-04-04 09:00)
DX: K44.9 Diaphragmatic hernia without obstruction or gangrene (principal); Z90.49 Acquired absence of other specified parts of digestive tract; Z88.8 Allergy status to other drugs, medicaments and biological substances
CPT/HCPCS: 00790; 76942; 94762; A9270; J0131; J0690; J1100; J1171; J1644; J1885; J2003; J2250; J2405; J2704; J3010; J3490; J7121